=== PATIENT | male | born 1950 ===

== ENCOUNTER 2017-09-05 09:09 | Day surgery (SDC) | payer MEDICARE ==
[2013-05-24 13:14] VITALS: BMI 23.7
[2017-09-05] MEDS ORDERED: Aminophylline 25 mg/ml Inj ONE (10:17)
--- NOTE | 2017-09-06 07:31 | PROCN ---
DATE: 09/05/17 INDICATIONS: Near syncope. PROCEDURE: Tilt table test. The patient was put on the table and tilted at 30 degrees for 5 minutes and 60 degrees for 15 minutes. Heart rate and blood pressure response was monitored every 2 minutes. The patient tolerated the procedure well. There were no symptoms reported during the test. IMPRESSION: Appropriate blood pressure and heart rate response during the tilt table test. Asymptomatic throughout the test. Megan Sahu MD
== END 2017-09-05 09:10 | disposition home or self-care (01) ==
LOC: C.CARD 09:09 → C.CATHLAB 09:09 → C.CARD 09:10 → C.CATHLAB 09:10
PROVIDERS: ATTEND Internal Medicine
DX: R06.02 Shortness of breath (principal); R55 Syncope and collapse; R07.9 Chest pain, unspecified; R42 Dizziness and giddiness
CPT/HCPCS: 78452; 93017; 93660; A9502; J0280; J2785